=== PATIENT | male | born 1955 | race Caucasian/White ===

== ENCOUNTER 2018-11-11 14:57 | Outpatient (CLI) | payer BC, OTHER ==
--- NOTE | 2018-11-11 16:11 | CT Report ---
Reason: NICTOENE ABUSE/DEPENDENCE Procedure Date: 11/11/2018 Accession Number: [id number] / [id number] Procedure: CT - Low Dose Lung Cancer Screen CPT Code: FULL RESULT: EXAM CT LUNG SCREEN EXAM DATE: 11/11/2018 03:09 PM. HISTORY: 63-year-old patient with [id number] smoking history. Currently smoking: Yes. COMPARISON: None. TECHNIQUE: CT examination of the entire thorax without contrast was performed using low-dose technique. Thin section coronal, axial, sagittal and MIP axial images were obtained. In accordance with CT protocol optimization, one or more of the following dose reduction techniques were utilized for this exam: automated exposure control, adjustment of mA and/or KV based on patient size, or use of iterative reconstructive technique. FINDINGS: Nodules: Right upper lobe: None. Right middle lobe: None. Right lower lobe: None. Left upper lobe: None. Left lower lobe: None. Emphysema: Mild emphysema. Pleura: Biapical scarring is noted. Aorta: Mildly calcified without aneurysm. Mediastinum: Unremarkable. Coronary calcifications: Moderate. Other pulmonary findings: Mild linear atelectasis or scarring is seen in the lingula as her minimal dependent changes. Other extrapulmonary findings: None. IMPRESSION: Lung-RADS ASSESSMENT CATEGORY: 1 - negative. Probability of malignancy: Less than 1%. RECOMMENDATION: Continue annual low-dose CT screening as per lung RADS criteria. RADIA
== END 2018-11-11 14:58 | disposition home or self-care (01) ==
LOC: DI 14:57
PROVIDERS: ATTEND Family Medicine
DX: Z12.2 Encounter for screening for malignant neoplasm of respiratory organs (principal); F17.210 Nicotine dependence, cigarettes, uncomplicated; J43.9 Emphysema, unspecified

== ENCOUNTER 2020-09-01 09:35 | Emergency (ER) | payer BC, OTHER ==
[2020-09-01 09:52] VITALS: BP 137/88
[2020-09-01 10:19] LABS: BASOPHILS % (AUTO) 0.7 %; EOSINOPHILS # (AUTO) 0.1 10^3/uL (0.0-0.7); EOSINOPHILS % (AUTO) 1.4 %; HGB - HEMOGLOBIN 16.2 g/dL (14.0-18.0); LYMPHOCYTES # (AUTO) 1.6 10^3/uL (1.5-3.5); LYMPHOCYTES % (AUTO) 26.4 %; MEAN CORPUSCULAR HEMOGLOBIN 32.7 pg (27.0-31.0); MEAN CORPUSCULAR HGB CONC 34.8 g/dL (32.0-36.0); MEAN PLATELET VOLUME 9.4 fL (7.4-11.4); MONOCYTES # (AUTO) 0.3 10^3/uL (0.0-1.0); MONOCYTES % (AUTO) 4.9 %; NEUTROPHILS # (AUTO) 3.9 10^3/uL (1.5-6.6); NEUTROPHILS % (AUTO) 66.3 %; PLT - PLATELET COUNT 203 10^3/uL (130-450); RED BLOOD COUNT 4.96 10^6/uL (4.70-6.10); WHITE BLOOD COUNT 5.9 x10^3/uL (4.8-10.8)
[2020-09-01 10:31] LABS: BILIRUBIN,URINE NEGATIVE (NEGATIVE); GLUCOSE, URINE (UA) NEGATIVE (NEGATIVE); KETONES,URINE (UA) NEGATIVE (NEGATIVE); LEUKOCYTE ESTERASE, URINE NEGATIVE (NEGATIVE); NITRITE,URINE NEGATIVE (NEGATIVE); OCCULT BLOOD,URINE LARGE (NEGATIVE); PROTEIN,URINE NEGATIVE (NEGATIVE); UROBILINOGEN,URINE 0.2 (NORMAL) E.U./dL (NORMAL)
[2020-09-01 10:33] LABS: ALBUMIN 4.5 g/dL (3.2-5.5); ALBUMIN/GLOBULIN RATIO 1.5 (1.0-2.2); BILIRUBIN,TOTAL 0.8 mg/dL (0.2-1.0); CALCIUM 9.5 mg/dL (8.5-10.3); TOTAL PROTEIN 7.6 g/dL (6.7-8.2)
[2020-09-01 10:35] LABS: CLARITY,URINE CLEAR (CLEAR)
[2020-09-01 10:43] LABS: BACTERIA,URINE None Seen /HPF (None Seen); SQUAMOUS EPITHELIAL CELL,UR NONE SEEN (<= Few)
--- NOTE | 2020-09-01 11:02 | CT Report ---
PROCEDURE: Abdomen/Pelvis WO INDICATIONS: R flank pain, nausea, urgency, h/o kidney stone TECHNIQUE: Noncontrast 5 mm thick sections acquired from the diaphragms to the symphysis. 5 mm coronal and sagi ttal reformats were then performed. For radiation dose reduction, the following was used: automated exposure control, adjustment of mA and/or kV according to patient size. COMPARISON: CT chest 11/11/2018. Abdominal ultrasound 11/22/2013. FINDINGS: Image quality: Excellent. ABDOMEN: Lung bases: Minimal bibasilar atelectasis. No pleural effusion. Heart size is normal. Solid organs: Liver is prominent in size. Hepatic steatosis. Gallbladder is unremarkable Pancreas is normal in contours. No splenomegaly. No adrenal nodules. Kidneys are normal in size. The right ureter is prominent compared to the left. Prominent right calyx at the inferior pole. There is a 0.3 cm calculus near the right UVJ which may be within the urinary bladder, (3/130). Suspect passing kidney stone. There are additional nonobstructing kidney stones roberth aterally (3 on the right and probably 3 on the left). Largest on the right measures 0.4 cm and on the left measures 0.3 cm. No hydronephrosis of the left kidney. Peritoneum and bowel: Unenhanced bowel loops demonstrate normal wall thickness and caliber. Diverti culosis without diverticulitis. Normal appendix. No free fluid or air. Nodes and vessels: No retroperitoneal or mesenteric adenopathy by size criteria. Aorta and inferior vena cava are normal in caliber. Extensive circumferential aortoiliac atherosclerotic plaque. Miscellaneous: No ventral hernias. PELVIS: Genitourinary: Bladder wall thickness is normal. Vas deferens calcifications. Miscellaneous: Small fat-containing inguinal hernias versus lipomatous hypertrophy. No adenopathy. Bones: No suspicious bony lesions. Moderate DDD. No vertebral body compression fractures. IMPRESSION: 1. A 0.3 cm calculus near the right UVJ which appears to be passing into the urinary bladder. There i s minimal hydroureteronephrosis on the right. 2. Additional small nonobstructing kidney stones bilaterally. 3. Steatosis. 4. Prominent atherosclerotic vascular calcifications. Reviewed by: Michael Cooley MD on 09/01/2020 10:01 AM ZAHEER Approved by: Michael Cooley MD on 09/01/2020 10:01 AM ZAHEER Station ID: [id number]
--- NOTE | 2020-09-01 11:12 | ED Physician Documentation ---
History of Present Illness - Stated complaint Stated Complaint: ABD PX - Chief complaint Chief Complaint: Abd Pain - History obtained from History obtained from: Patient - Additonal information Additional information: Urgency department complaining of a cramping, right flank and back pain that started about 2 hours ago as he was getting into the shower. Patient states that he suddenly felt the pain and got a wave of nausea, which ended up causing him to vomit. Patient states initial pain was at a 7 or 8, but that after time the subsided to the present level, which is a 2 out of 10. Patient states he does have a history of kidney stones previously, but it has been sometime ago. No fevers. Patient has had a little bit of a chill. He was not feeling ill in any way prior to onset of symptoms. No sick contacts. No diarrhea, dysuria, or chest symptoms. No other complaints at this time. Review of Systems Ten Systems: 10 systems reviewed and negative Constitutional: reports: Reviewed and negative Eyes: reports: Reviewed and negative Ears: reports: Reviewed and negative Nose: reports: Reviewed and negative Throat: reports: Reviewed and negative Cardiac: reports: Reviewed and negative Respiratory: reports: Reviewed and negative GI: reports: Abdominal Pain, Nausea, Vomiting : reports: Other (Flank pain). denies: Dysuria, Frequency, Hematuria Skin: reports: Reviewed and negative Musculoskeletal: reports: Reviewed and negative Neurologic: reports: Reviewed and negative Psychiatric: reports: Reviewed and negative Endocrine: reports: Reviewed and negative Immunocompromised: reports: Reviewed and negative PD PAST MEDICAL HISTORY - Past Medical History Past Medical History: Yes Cardiovascular: Hypertension, High cholesterol Respiratory: None Neuro: None Endocrine/Autoimmune: None GI: None : None HEENT: None Psych: None Musculoskeletal: None Derm: None - Past Surgical History Past Surgical History: Yes - Present Medications Home Medications: Ambulatory Orders Medication Instructions Recorded Confirmed Aspirin Chewable [[facility] 03/15/14 03/15/14 Aspirin] Losartan/Hydrochlorothiazide 03/15/14 03/15/14 [Hyzaar 100-25 Tablet] Metoprolol Tartrate 03/15/14 03/15/14 Simvastatin 03/15/14 03/15/14 Simvastatin [Zocor] 03/15/14 03/15/14 HYDROcod/ACETAM 5/325 [[place] 5/325] 1 - 2 ea PO Q6H PRN #15 tablet 09/01/20 Ondansetron Odt [Zofran] 4 mg TL Q6H PRN #10 tablet 09/01/20 - Allergies Allergies/Adverse Reactions: Allergies Allergy/AdvReac Type Severity Reaction Status Date / Time bee stings Allergy Edema Uncoded 09/01/20 09:53 - Social History Does the pt smoke?: Yes Smoking Status: Current every day smoker Does the pt drink ETOH?: No Does the pt have substance abuse?: No - Immunizations Immunizations are current?: No PD ED PE NORMAL - Vitals Vital signs reviewed: Yes - General General: Alert and oriented X 3, No acute distress - HEENT HEENT: PERRL - Neck Neck: Supple, no meningeal sign - Cardiac Cardiac: RRR, No murmur - Respiratory Respiratory: No respiratory distress, Clear bilaterally - Abdomen Abdomen: Soft, Non distended, Other (Minimal right flank tenderness and CVA tenderness no rebound or guarding.) - Back Back: Other (Minimal right flank tenderness.) - Derm Derm: Normal color, Warm and dry, No rash - Extremities Extremities: No deformity, No edema, No calf tenderness / cord - Neuro Neuro: Alert and oriented X 3 - Psych Psych: Normal mood, Normal affect Results - Vitals Vitals: Vital Signs - 24 hr 09/01/20 09:43 Temperature 36.2 C L Heart Rate 80 Respiratory 16 Rate Blood Pressure 137/88 H O2 Saturation 99 Oxygen O2 Source Room air - Labs Labs: Laboratory Tests 09/01/20 09/01/20 09/01/20 10:15 10:15 10:20 WBC 5.9 RBC 4.96 Hgb 16.2 Hct 46.6 MCV 94.0 MCH 32.7 H MCHC 34.8 RDW 13.0 Plt Count 203 MPV 9.4 Neut # (Auto) 3.9 Lymph # (Auto) 1.6 White # (Auto) 0.3 Eos # (Auto) 0.1 Baso # (Auto) 0.0 Absolute Nucleated RBC 0.00 Nucleated RBC % 0.0 Sodium 139 Potassium 3.9 Chloride 101 Carbon Dioxide 26 Anion Gap 12.0 BUN 19 Creatinine 1.0 Estimated GFR (MDRD) 75 L Glucose 162 H Calcium 9.5 Total Bilirubin 0.8 AST 30 ALT 37 Alkaline Phosphatase 41 L Total Protein 7.6 Albumin 4.5 Globulin 3.1 Albumin/Globulin Ratio 1.5 Lipase 30 Urine Color YELLOW Urine Clarity CLEAR Urine pH 6.0 Ur Specific [place] 1.020 Urine Protein NEGATIVE Urine Glucose (UA) NEGATIVE Urine Ketones NEGATIVE Urine Occult Blood LARGE H Urine Nitrite NEGATIVE Urine Bilirubin NEGATIVE Urine Urobilinogen 0.2 (NORMAL) Ur Leukocyte Esterase NEGATIVE Urine RBC 11-25 H Urine WBC 0-3 Ur Squamous Epith Cells NONE SEEN Urine Bacteria None Seen Ur Microscopic Review INDICATED Urine Culture Comments NOT INDICATED - Rads (name of study) CT abd/pelvis, NC Radiology: Final report received, EMP read indepedently, See rad report (3mm R UVJ stone) PD MEDICAL DECISION MAKING - ED course Complexity details: reviewed results, re-evaluated patient, considered differential, d/w patient ED course: The patient declined symptomatic treatment, as he was feeling quite a bit better upon arrival in the emergency department. CT scans showed a 3 mm right UVJ stone that appeared to be passing into the bladder. Bilateral stones on both sides in the kidneys but no other ureteral stones. I discussed the findings with the patient. We have discussed home management of the symptoms, as well as the usual indications for return. Departure - Departure Disposition: Home, Self Care Clinical Impression: Kidney stone on right side Condition: Stable Instructions: ED Stone Renal W Colic Prescriptions: HYDROcod/ACETAM 5/325 [[place] 5/325] 1 - 2 ea PO Q6H PRN #15 tablet PRN Reason: Pain Ondansetron Odt [Zofran] 4 mg TL Q6H PRN #10 tablet PRN Reason: Nausea / Vomiting Comments: Your CT scan shows a 3 mm right-sided kidney stone that is right at the junction of the ureter and bladder. The radiologist has remarked that it appears that your stone is passing into the bladder. Once the stone is in the bladder, it passes very quickly out through the urethra with urination, and while it may cause a brief twinge of pain, this is generally very quick. You do have a few other stones in the kidneys themselves, but none of these appear to be on the verge of passing at this point in time. They may pass at any time, and will likely cause similar symptoms to the ones you are experiencing now. You may follow-up with your doctor as needed.
== END 2020-09-01 11:28 | disposition home or self-care (01) ==
LOC: ED 09:35
DX: N20.2 Calculus of kidney with calculus of ureter (principal); Z87.442 Personal history of urinary calculi; I10 Essential (primary) hypertension; Z79.82 Long term (current) use of aspirin; F17.200 Nicotine dependence, unspecified, uncomplicated
CPT/HCPCS: 36415; 74176; 80053; 81001; 81003; 83690; 85025; 87086; 99284

== ENCOUNTER 2020-09-26 14:39 | Outpatient (CLI) | payer BC, OTHER ==
--- NOTE | 2020-09-26 15:17 | CT Report ---
PROCEDURE: Low Dose Lung Cancer Screen INDICATIONS: NICOTINE ABUSE/DEPENDENCE TECHNIQUE: Noncontrast low-dose 5 mm thick sections acquired from the pulmonary apices to the posterior costophr enic angles. 7 mm thick coronal and sagittal MIP reformats were then acquired. For radiation dose r eduction, the following was used: automated exposure control, adjustment of mA and/or kV according t o patient size. COMPARISON: None. FINDINGS: Image quality: Excellent. Lungs and pleura: No pulmonary nodules. No focal infiltrates. No pleural fluid. Mediastinum: Heart size is normal. No pericardial effusion. Moderately severe coronary artery calc ifications. No mediastinal adenopathy by size criteria. Thoracic aorta and central pulmonary arterie s are normal in size. Esophagus is normal in caliber. No hiatal hernia. Bones and chest wall: No suspicious bony lesions. No vertebral body compression fractures. No axil scooter or supraclavicular adenopathy by size criteria. The thyroid is normal in size. Abdomen: Hepatic steatosis. Upper pole nonobstructing right renal stone. IMPRESSION: 1. LungRads category 1: Negative. No nodules and/or definitely benign nodules. 2. Annual low-dose noncontrast CT of the chest is recommended for lung cancer screening. 3. Clinically significant or potentially clinically significant findings (nonlung cancer): Coronary a rtery disease, hepatic steatosis, nephrolithiasis. Reviewed by: Mannie Leon MD on 09/26/2020 3:15 PM PST Approved by: Mannie Leon MD on 09/26/2020 3:15 PM PST Station ID: [id number]
--- OUTSIDE RECORDS SUMMARY | 2020-10-02 01:15 | EXTERNAL MEDICAL SUMMARY RPT | Continuity of Care Document ---
:1955 Demographics Phone Unavailable Preferred Language pat Marital Status Unknown Sikh Affiliation Unknown Race Unknown Ethnic Group Unknown Author Organization [place] Address [address] [place] [address] Phone Care Team Providers Name Role Phone DO Unavailable Unavailable Scheidt Unavailable Unavailable Zaira Unavailable Unavailable Problems date description facility 2013-11-15 06:41 ABN SERUM ENZY LEVEL [facility] 2013-11-22 08:28 ABN BLOOD CHEMISTRY [facility] 2014-03-15 16:37 TOXIC EFFECT V[facility] [place] 2014-03-15 16:37 ACCIDENT IN HOME [facility] 2014-03-15 16:37 HORNET/WASP/BEE STING [facility] [place] 2018-11-11 14:57 NICOTINE DEPENDENCE, CIGARETTES, [facility] UNCOMPLICATED 2018-11-11 14:57 EMPHYSEMA, UNSPECIFIED [facility] Center 2018-11-11 14:57 ENCNTR SCREEN FOR MALIGNANT [facility] NEOPLASM OF RESPIRATORY ORGANS 2020-08-09 00:00:00 MICROALBUMIN/CREAT RATIO [facility] [place] [facility] 2020-08-09 00:00:00 TSH WITH REFLEX TO FT4 [facility] [place] [facility] 2020-08-09 00:00:00 COMPREHENSIVE METABOLIC PANEL [facility] [place] [facility] 2020-08-09 00:00:00 LIPIDS SCREEN [facility] [place] [facility] 2020-08-09 00:00:00 HGBA1C [facility] [place] [facility] 2020-08-09 00:00:00 PSA, SCREENING [facility] [place] [facility] 2020-08-09 00:00:00 CBC W/Diff/Plt [facility] [place] [facility] 2020-09-01 09:35 NICOTINE DEPENDENCE, [facility] UNSPECIFIED, UNCOMPLICATED 2020-09-01 09:35 ESSENTIAL (PRIMARY) HYPERTENSION [facility] 2020-09-01 09:35 HALFWAY (CURRENT) USE OF [facility] ASPIRIN 2020-09-01 09:35 PERSONAL HISTORY [facility] [place] 2020-09-01 09:35 CALCULUS OF KIDNEY WITH CALCULUS [facility] OF URETER 2020-09-01 09:35 UNSPECIFIED [facility]BDOMINAL PAIN [facility] 2020-09-02 00:00:00 Calculus of kidney [facility] 2020-09-02 00:00:00 Kidney stone [facility] 2020-09-10 00:00:[address] [facility] imary Care [facility] 2020-09-10 00:00:00 LDCT LUNG SCREEN [facility] 2020-09-10 00:00:00 [facility] unspecified, uncomplicated [facility] 2020-09-10 00:00:00 Alcohol intake [facility] 2020-09-10 00:00:00 Health-related behavior [facility] 2020-09-10 00:00:00 [facility] 2020-09-10 00:00:00 Details of drug misuse behavior [facility] 2020-09-10 00:00:00 Little interest or pleasure in [facility] doing things? [facility] 2020-09-10 00:00:00 Feeling down, depressed, or [facility] hopeless? [facility] 2020-09-10 00:00:00 Current every day smoker [facility] 2020-09-10 00:00:00 [facility]otine dependence [facility] 2020-09-10 00:00:00 Alcohol use [facility] 2020-09-26 14:39 NICOTINE DEPENDENCE, CIGARETTES, [facility] UNCOMPLICATED 2020-09-26 14:39 ENCNTR SCREEN FOR MALIGNANT [facility] NEOPLASM OF RESPIRATORY ORGANS 2020-09-30 00:00:00 Coronary atherosclerosis of [facility] unspecified type of vessel, [place] [facility] [place] or graft 2020-09-30 00:00:00 Atherosclerotic heart disease of [facility] [place] coronary artery without [place] [facility] angina pectoris Allergies date description facility AMOXICILLIN [facility] bee stings [facility] NSAIDS (NON-STEROIDAL ANTI-INFLAMMATORY DRUG) [facility] NO KNOWN ALLERGIES [facility] ALLOPURINOL [facility] LOVASTATIN [facility] HYDROCHLOROTHIAZIDE [facility] LACTOSE [facility] AMOXICILLIN [facility] bee stings [facility] PENICILLINS [facility] AMOXICILLIN [facility] bee stings [facility] ATORVASTATIN [facility] ROSUVASTATIN [facility] MACROLIDE ANTIBIOTICS [facility] dical Center NO KNOWN ALLERGIES [facility] ETHER [facility] PROCHLORPERAZINE [facility] CEFUROXIME AXETIL [facility] ERYTHROMYCIN BASE [facility] LAMOTRIGINE [facility] THEOPHYLLINE [facility] OXYCODONE-ACETAMINOPHEN [facility] NITROFURANTOIN [facility] No Known Drug Allergies [facility] Medications date description facility 2020-09-02 00:00:00 null [facility] [place] [facility] 2020-09-02 00:00:00 null [facility] [place] [facility] 2020-09-02 00:00:00 null [facility] [place] [facility] 2020-09-02 00:00:00 null [facility] [place] [facility] 2020-09-02 00:00:00 ONDANSETRON [facility] [place] [facility] 2020-09-02 00:00:00 HYDROCODONE-ACETAMINOPHEN [facility] [place] [facility] 2020-09-02 00:00:00 ONDANSETRON [facility] [place] [facility] 2020-09-02 00:00:00 HYDROCODONE-ACETAMINOPHEN [facility] [place] [facility] Procedures date description facility 2020-08-09 00:00:00 MICROALBUMIN/CREAT RATIO [facility] [place] [facility] date description facility 2020-08-09 00:00:00 TSH WITH REFLEX TO FT4 [facility] [place] [facility] date description facility 2020-08-09 00:00:00 COMPREHENSIVE METABOLIC PANEL [facility] [place] [facility] date description facility 2020-08-09 00:00:00 LIPIDS SCREEN [facility] [place] [facility] date description facility 2020-08-09 00:00:00 HGBA1C [facility] [place] [facility] date description facility 2020-08-09 00:00:00 PSA, SCREENING [facility] [place] [facility] date description facility 2020-08-09 00:00:00 CBC W/Diff/Plt [facility] [place] [facility] date description facility 2020-08-09 00:00:00 [facility] [place] [facility] Results Social History date description facility 2020-09-10 00:00:00 Current every day smoker [facility] [place] [facility] Social History date description facility 2020-09-10 00:00:00 Current every day smoker [facility] [place] [facility] date description facility [id number]
== END 2020-09-26 14:40 | disposition home or self-care (01) ==
LOC: DI 14:39
PROVIDERS: ATTEND Family Medicine
DX: Z12.2 Encounter for screening for malignant neoplasm of respiratory organs (principal); F17.210 Nicotine dependence, cigarettes, uncomplicated
CPT/HCPCS: 71271; G0297

== ENCOUNTER 2021-12-01 15:54 | Outpatient (CLI) | payer BC, MEDICARE, OTHER ==
--- NOTE | 2021-12-01 16:40 | CT Report ---
PROCEDURE: Low Dose Lung Cancer Screen INDICATIONS: NICOTINE ABUSE TECHNIQUE: Noncontrast low-dose images were acquired from the pulmonary apices to the posterior costophrenic ang les. Multiplanar MIP reformats were then acquired. For radiation dose reduction, the following was used: automated exposure control, adjustment of mA and/or kV according to patient size. COMPARISON: CT chest 09/26/2019. FINDINGS: Image quality: Excellent. Lungs and pleura: No suspicious pulmonary nodule. No acute consolidation. Mediastinum: Heart size is normal. No pericardial effusion. Moderate to severe coronary artery chu cifications. No mediastinal adenopathy by size criteria. Thoracic aorta and central pulmonary arteri es are normal in size. Aortic atherosclerotic calcifications. Esophagus is normal in caliber. No hi atal hernia. Bones and chest wall: No suspicious bony lesions. No vertebral body compression fractures. No axil scooter or supraclavicular adenopathy by size criteria. The thyroid is normal in size. Abdomen: A 5 mm nonshadowing calculus is seen in the included upper pole the right kidney. The liver is mildly hypoattenuating. IMPRESSION: 1.No suspicious pulmonary nodule. 2.Coronary artery calcifications. 3.Mild hepatic steatosis. 4.Nonobstructing 5 mm calculus of the superior pole the right kidney. Lung RADS category 1: Negative. Recommend continued annual screening with low-dose chest CT in 12 wed ths. Reviewed by: Jay West MD on 12/01/2021 4:39 PM PDT Approved by: Jay West MD on 12/01/2021 4:39 PM PDT Station ID: [id number]
== END 2021-12-01 15:55 | disposition home or self-care (01) ==
LOC: DI 15:54
PROVIDERS: ATTEND Family Medicine
DX: Z12.2 Encounter for screening for malignant neoplasm of respiratory organs (principal); F17.210 Nicotine dependence, cigarettes, uncomplicated; I25.10 Atherosclerotic heart disease of native coronary artery without angina pectoris; K76.0 Fatty (change of) liver, not elsewhere classified; N20.0 Calculus of kidney

== ENCOUNTER 2022-12-09 09:05 | Outpatient (CLI) | payer MEDICARE, OTHER ==
--- NOTE | 2022-12-09 11:04 | CT Report ---
PROCEDURE: Low Dose Lung Cancer Screen INDICATIONS: HIST OF SMOKING TECHNIQUE: Noncontrast low-dose axial images were acquired from the pulmonary apices to the posterior costophren ic angles. Multiplanar MIP reformats were then reconstructed. For radiation dose reduction, the follo wing was used: automated exposure control, adjustment of mA and/or kV according to patient size. COMPARISON: Lung cancer screening chest CT 12/01/2021. FINDINGS: Image quality: Excellent. Lungs and pleura: Mild emphysematous change. No mass or significant pulmonary nodules. No acute airs pace opacity. The airways are clear. No pleural effusion. No pneumothorax. Mediastinum: Heart size is normal. Three-vessel coronary artery calcifications, severe. No pericard ial effusion. No mediastinal adenopathy by size criteria. Thoracic aorta and central pulmonary noreen gennaro are normal in size. Esophagus is normal in caliber. No hiatal hernia. Bones and chest wall: No suspicious bony lesions. No vertebral body compression fractures. No axil scooter or supraclavicular adenopathy by size criteria. The thyroid is normal in size and there are no incidental findings. Abdomen: Hepatic steatosis. Nonobstructing right kidney stone measuring 0.5 cm. No adrenal nodule. IMPRESSION: 1. No significant pulmonary nodules. Lung RADS 1. Recommend follow-up lung cancer screening chest CT in 12 months. 2. Severe three-vessel coronary artery calcifications. 3. Hepatic steatosis. Nonobstructing right kidney stone. Reviewed by: Michael Cooley MD on 12/09/2022 11:03 AM PDT Approved by: Michael Cooley MD on 12/09/2022 11:03 AM PDT Station ID: [id number]
== END 2022-12-09 09:06 | disposition home or self-care (01) ==
LOC: DI 09:05
PROVIDERS: ATTEND Nurse Practitioner Family
DX: Z12.2 Encounter for screening for malignant neoplasm of respiratory organs (principal); J43.9 Emphysema, unspecified; I25.10 Atherosclerotic heart disease of native coronary artery without angina pectoris; K76.0 Fatty (change of) liver, not elsewhere classified; N20.0 Calculus of kidney; F17.200 Nicotine dependence, unspecified, uncomplicated

== ENCOUNTER 2023-05-07 06:27 | Day surgery (SDC) | payer MEDICARE, OTHER ==
[2023-05-07] MEDS ORDERED: LACTATED RINGERS 1,000 ML IV ONE (06:41)
--- NOTE | 2023-05-07 07:06 | ANESTHESIA ---
Pre-Anesthesia VS, & Labs - Diagnosis GERD - Procedure colonoscopy Vital Signs: Temp Pulse Resp BP Pulse Ox O2 Flow Rate 36.0 C L 50 L 16 131/88 H 99 05/07/23 06:30 05/07/23 06:30 05/07/23 06:30 05/07/23 06:30 05/07/23 06:30 Height: 5 ft 11 in Weight (kg): 82 kg Body Mass Index: 25.2 BMI Classification: Overweight - NPO >8 hours - Lab Results Current Lab Results: Laboratory Tests 05/07/23 06:54: POC Whole Bld Glucose 129 H Lab results reviewed: Yes Home Medications and Allergies Home Medications: Ambulatory Orders Dorzolamide 2% Ophth Drops [Trusopt 2% Ophth Drops] 1 drops OPTH BID 05/06/23 Fenofibrate 160 mg PO DAILY 05/06/23 Metformin HCl [Metformin ER Osmotic] 500 mg PO BID 05/06/23 Timolol 0.25% Ophth Drops [Timoptic 0.25% Ophth Drops] 1 drops OPTH BID 05/06/23 Travoprost [Travatan Z] 2.5 ml OP DAILY 05/06/23 Aspirin Chewable [[facility] Aspirin] 81 mg PO DAILY 03/15/14 Losartan/Hydrochlorothiazide [Hyzaar 100-25 Tablet] 100 mg PO DAILY 03/15/14 Metoprolol Tartrate 100 mg PO BID 03/15/14 Simvastatin 40 mg PO DAILY 03/15/14 Dorzolamide 2% Ophth Drops [Trusopt 2% Ophth Drops] 1 drops OPTH BID 05/06/23 Fenofibrate 160 mg PO DAILY 05/06/23 Metformin HCl [Metformin ER Osmotic] 500 mg PO BID 05/06/23 Timolol 0.25% Ophth Drops [Timoptic 0.25% Ophth Drops] 1 drops OPTH BID 05/06/23 Travoprost [Travatan Z] 2.5 ml OP DAILY 05/06/23 Allergies/Adverse Reactions: Allergies Allergy/AdvReac Type Severity Reaction Status Date / Time bee stings Allergy Edema Uncoded 09/01/20 09:53 Anes History & Medical History - Anesthetic History Anesthesia Complications: reports: No previous complications Family history of Anesthesia Complications: Denies Family history of Malignant Hyperthermia: Denies - Medical History Cardiovascular: reports: Hypertension, High cholesterol Pulmonary: reports: None Gastrointestinal: reports: GERD, Colon polyps, Hemorrhoids, Other Urinary: reports: Kidney stones Neuro: reports: None Musculoskeletal: reports: None Endocrine/Autoimmune: reports: None (reports "pre"diabetes) Blood Disorders: reports: None Skin: reports: None Smoking Status: Former smoker (quit 3 yrs prior) - Surgical History General: reports: Colonoscopy Exam General: Alert, Oriented x3, Cooperative Dental: WNL Mouth Openin Fingerbreadth Neck Mobility: Normal Mallampati classification: II Thyromental Distance: 4-6 cm Respiratory: Lungs clear Cardiovascular: Regular rate Plan Anesthesia Type: General, MAC Consent for Procedure(s) Verified and Reviewed: Yes Code Status: Attempt Resuscitation ASA classification: 2-Mild systemic disease Is this case an emergency?: Yes
--- NOTE | 2023-05-07 07:23 | HISTORY & PHYSICAL EXAMINATION ---
Chief Complaint - Chief Complaint Chief Complaint: heartburn History of Present Illness - History Obtained From Records Reviewed: yes History obtained from: pt Exam Limitations: none - History of Present Illness HPI Comment/Other: longstanding heartburn. here for egd History - Past Medical History Cardiovascular: reports: Hypertension, High cholesterol Respiratory: reports: None Neuro: reports: None Endocrine/Autoimmune: reports: None (reports "pre"diabetes) GI: reports: GERD, Colon polyps, Hemorrhoids, Other : reports: Kidney stones HEENT: reports: Chronic vision loss, Glaucoma, Chronic sinusitis Psych: reports: None Musculoskeletal: reports: None Derm: reports: None MRSA Hx?: No - Past Surgical History General: reports: Colonoscopy Meds/Allgy - Home Medications Home Medications: Ambulatory Orders Medication Instructions Recorded Confirmed Aspirin Chewable [[facility] 81 mg PO DAILY 03/15/14 05/06/23 Aspirin] Losartan/Hydrochlorothiazide 100 mg PO DAILY 03/15/14 05/06/23 [Hyzaar 100-25 Tablet] Metoprolol Tartrate 100 mg PO BID 03/15/14 05/06/23 Simvastatin 40 mg PO DAILY 03/15/14 05/06/23 Dorzolamide 2% Ophth Drops 1 drops OPTH BID 05/06/23 05/06/23 [Trusopt 2% Ophth Drops] Fenofibrate 160 mg PO DAILY 05/06/23 05/06/23 Metformin HCl [Metformin ER 500 mg PO BID 05/06/23 05/06/23 Osmotic] Timolol 0.25% Ophth Drops 1 drops OPTH BID 05/06/23 05/06/23 [Timoptic 0.25% Ophth Drops] Travoprost [Travatan Z] 2.5 ml OP DAILY 05/06/23 05/06/23 - Allergies Allergies/Adverse Reactions: Allergies Allergy/AdvReac Type Severity Reaction Status Date / Time bee stings Allergy Edema Uncoded 09/01/20 09:53 Review of Systems - Other Findings Other Findings: 10 pt ros as above otherwise unremarkable Exam - Vital Signs Vital Signs: Vital Signs x48h Temp Pulse Resp BP Pulse Ox 05/07/23 06:30 36.0 C L 50 L 16 131/88 H 99 - Physical Exam General Appearance: positive: No acute distress, Alert Eyes Bilateral: positive: PERRL, EOMI ENT: positive: No signs of dehydration Neck: positive: No JVD, Trachea midline Respiratory: positive: No respiratory distress Cardiovascular: positive: Regular rate & rhythm Abdomen: positive: No distention Neurologic/Psychiatric: positive: Oriented x3 Conclusion/Plan - Problem List (1) Heartburn Conclusion/Plan: plan egd with biopsies. parq held and consent obtained - Lab Results Lab results reviewed: Yes
[2023-05-07] MEDS ORDERED: LACTATED RINGERS 600 ML IV ONE (07:48)
[2023-05-07] MEDS ORDERED: PROPOFOL 200 MG/20 ML VIAL IVP ONE (07:56)
[2023-05-07 08:21] VITALS: BP 104/57; O2SAT 98
--- NOTE | 2023-05-07 09:15 | ANESTHESIA POST OP EVALUATION ---
Anesthesia Post Eval - Post Anesthesia Eval Vitals: Last Vital Signs Temp 35.6 C L 05/07/23 08:08 Pulse 51 L 05/07/23 08:08 Resp 20 05/07/23 08:08 BP 104/57 L 05/07/23 08:08 Pulse Ox 98 05/07/23 08:08 O2 Flow Rate CV Function Including HR & BP: Stable Pain Control: Satisfactory Nausea & Vomiting: Negative Mental Status: Baseline Respiratory Status: Airway Patent Hydration Status: Satisfactory Anesthesia Complications: None
[2023-05-07] MEDS ORDERED: PROPOFOL 500 MG/50 ML 0 MG/0 ML VIAL ONE (14:44)
== END 2023-05-07 06:28 | disposition home or self-care (01) ==
LOC: SDS 06:27
PROVIDERS: ATTEND Surgery
PROC: 0DB68ZX Excision of Stomach, Via Natural or Artificial Opening Endoscopic, Diagnostic (ICD-10-PCS; 2023-05-07)
PROC: 0DB58ZX Excision of Esophagus, Via Natural or Artificial Opening Endoscopic, Diagnostic (ICD-10-PCS; principal; 2023-05-07 07:30)
DX: R12 Heartburn (principal); K29.50 Unspecified chronic gastritis without bleeding; I10 Essential (primary) hypertension; R73.03 Prediabetes
CPT/HCPCS: 43239; J7120